=== PATIENT | female | born 1950 | race Hispanic/Latino ===

== ENCOUNTER 2022-02-28 12:25 | Emergency (ER) | payer MEDICARE ==
[2022-02-28] MEDS ORDERED: ACETAMINOPHEN 500 MG TAB PO ONE (15:57)
--- NOTE | 2022-02-28 15:57 | Emergency Department Report ---
ED Fall HPI - General Chief Complaint: Fall Stated Complaint: FALL/HEAD INJURY Source: patient Mode of arrival: Ambulatory - History of Present Illness Initial Comments: 71-year-old female presents to the ED after ground-level fall. Patient is complaining of a mild headache. She has some bruising noted to the supra part of her head. Patient states that while she was gardening she accidentally slipped while pulling pulling some garden roots. She states that she fell backwards and hit her head on some cement. She states that she has a history of diabetes, hypertension and sleep apnea. She states that she takes aspirin daily. States that pain is a current 5 out of 10. Patient states that she did not take any medication prior to arrival. She has an ice pack noted to the back of her head. Patient denies that pain is radiating. Patient denies any LOC, nausea or vomiting or blurred vision. Patient is ambulatory. No acute distress noted. No ill appearance noted. - Related Data Allergies Allergy/AdvReac Type Severity Reaction Status Date / Time No Known Allergies Allergy Unverified 02/28/22 13:44 ED Review of Systems ROS: Stated complaint: FALL/HEAD INJURY Other details as noted in HPI Constitutional: denies: chills, fever Eyes: denies: eye pain, eye discharge, vision change ENT: denies: ear pain, throat pain Respiratory: denies: cough, shortness of breath, wheezing Cardiovascular: denies: chest pain, palpitations Endocrine: no symptoms reported Gastrointestinal: denies: abdominal pain, nausea, diarrhea Genitourinary: denies: urgency, dysuria, discharge Musculoskeletal: denies: back pain, joint swelling, arthralgia Skin: denies: rash, lesions Neurological: headache. denies: weakness, paresthesias Psychiatric: denies: anxiety, depression Hematological/Lymphatic: denies: easy bleeding, easy bruising ED Past Medical Hx - Past Medical History Previous Medical History?: Yes Hx Diabetes: Yes Additional medical history: sleep apnea - Surgical History Past Surgical History?: Yes Additional Surgical History: Hysterectomy, Left foot x 2, Tonsillectomy ED Physical Exam - General Limitations: No Limitations General appearance: alert, in no apparent distress - Head Head exam: Present: atraumatic, normocephalic - Eye Eye exam: Present: normal appearance - ENT ENT exam: Present: mucous membranes moist - Neck Neck exam: Present: normal inspection - Respiratory Respiratory exam: Present: normal lung sounds bilaterally. Absent: respiratory distress - Cardiovascular Cardiovascular Exam: Present: regular rate, normal rhythm. Absent: systolic murmur, diastolic murmur, rubs, gallop - GI/Abdominal GI/Abdominal exam: Present: soft, normal bowel sounds - Extremities Exam Extremities exam: Present: normal inspection - Back Exam Back exam: Present: normal inspection - Neurological Exam Neurological exam: Present: alert, oriented X3 - Psychiatric Psychiatric exam: Present: normal affect, normal mood - Skin Skin exam: Present: warm, dry, intact, normal color. Absent: rash ED Course Vital Signs 02/28/22 02/28/22 02/28/22 13:37 15:07 16:51 Temperature 97.9 F 98.9 F Pulse Rate 77 71 Respiratory 20 14 Rate Blood Pressure 136/85 135/72 [Right] O2 Sat by Pulse 97 98 98 Oximetry ED Medical Decision Making - Radiology Data [facility] [address] [place] [address] Cat Scan Report Signed Patient: CARLOS CULVER MR#: [id number] : 1950 Acct:[id number] Age/Sex: 71 / F ADM Date: 02/28/22 Loc: ED Attending Dr: Ordering Physician: RAFI ARIAS Date of Service: 02/28/22 Procedure(s): CT head/brain wo con Accession Number(s): [id number] cc: RAFI ARIAS CT head/brain wo con INDICATION / CLINICAL INFORMATION: 71 years Female; fall. TECHNIQUE: Routine CT head without contrast. All CT scans at this location are performed using CT dose reduction for ALARA by means of automated exposure control. COMPARISON: None. FINDINGS: BRAIN / INTRACRANIAL CONTENTS: No acute hemorrhage, mass effect, midline shift, hydrocephalus, or acute, large territorial infarct. Mild, diffuse cerebral atrophy. There are minimal areas of decreased attenuation in the white matter of the cerebral hemispheres. These are nonspecific findings and may be related to microangiopathy (hypertension, diabetes, atherosclerosis), given the patient's age. CRANIOCERVICAL JUNCTION: No significant abnormality. ORBITS: No significant abnormality of visualized orbits. SINUSES / MASTOIDS: Mild mucosal thickening seen in the mastoids on the right. ADDITIONAL FINDINGS: Subcutaneous trauma seen in the left occipital region. No signs of underlying calvarial fracture noted. IMPRESSION: 1. No focal mass, intracranial hemorrhage, hydrocephalus, or acute, large territorial infarct. Signer Name: Siva Amos MD, III Signed: 02/28/2022 3:56 PM Workstation Name: [id number] Transcribed By: HR Dictated By: Siva Amos MD Electronically Authenticated By: Siva Amos MD Signed Date/Time: 02/28/221555 DD/ 53 TD/TT: Print Cancel - Medical Decision Making 71-year-old female presents to the ED after ground-level fall. Patient is complaining of a mild headache. She has some bruising noted to the supra part of her head. Patient states that while she was gardening she accidentally slip ped while pulling pulling some garden roots. She states that she fell backwards and hit her head on some cement. She states that she has a history of diabetes, hypertension and sleep apnea. She states that she takes aspirin daily. States that pain is a current 5 out of 10. Patient states that she did not take any medication prior to arrival. She has an ice pack noted to the back of her head. Patient denies that pain is radiating. Patient denies any LOC, nausea or vomiting or blurred vision. Patient is ambulatory. No acute distress noted. No ill appearance noted. Physical examination patient has abrasion noted to the cervical part of her head. She has abrasion noted to the bilateral extremity. No bleeding noted. CT of the head shows no abnormality Rechecked the patient is resting quietly quietly and comfortable and feeling better. I discussed the results of diagnostic study, my clinical impression and the plan for further treatment with the patient. Patient agrees with plan and discharge at this present time. All question addressed. I have given the patient instruction regarding a diagnosis ,expectation ,follow- up and return precaution. I explained to the patient that emergent condition may arise and to return to the ED for new worsen and any new persisting condition. I have explained the importance of following up with the primary care physician or referral physician listed below has instructed. The patient verbalized understanding of discharge instruction. Critical care attestation.: If time is entered above; I have spent that time in minutes in the direct care of this critically ill patient, excluding procedure time. ED Disposition Clinical Impression: Abrasion Fall Qualifiers: Encounter type: initial encounter Qualified Code(s): W19.XXXA - Unspecified fall, initial encounter Contusion Qualifiers: Encounter type: initial encounter Contusion area: head Disposition: HOME / SELF CARE / HOMELESS Is pt being admited?: No Does the pt Need Aspirin: No Condition: Stable Instructions: Head Injury, Adult, Skin Tear, Abrasion, [id number], Fall Prevention in the Home, Adult Additional Instructions: May take [id number] Tylenol for pain Return to ED for any worsening symptom Referrals: ADALGISA TILLMAN II, MD [Staff Physician] - 3-5 Days Time of Disposition: 16:29
--- NOTE | 2022-02-28 16:00 | Cat Scan Report ---
CT head/brain wo con INDICATION / CLINICAL INFORMATION: 71 years Female; fall. TECHNIQUE: Routine CT head without contrast. All CT scans at this location are performed using CT dos e reduction for ALARA by means of automated exposure control. COMPARISON: None. FINDINGS: BRAIN / INTRACRANIAL CONTENTS: No acute hemorrhage, mass effect, midline shift, hydrocephalus, or acu te, large territorial infarct. Mild, diffuse cerebral atrophy. There are minimal areas of decreased attenuation in the white matter of the cerebral hemispheres. The se are nonspecific findings and may be related to microangiopathy (hypertension, diabetes, atheroscle rosis), given the patient's age. CRANIOCERVICAL JUNCTION: No significant abnormality. ORBITS: No significant abnormality of visualized orbits. SINUSES / MASTOIDS: Mild mucosal thickening seen in the mastoids on the right. ADDITIONAL FINDINGS: Subcutaneous trauma seen in the left occipital region. No signs of underlying ca lvarial fracture noted. IMPRESSION: 1. No focal mass, intracranial hemorrhage, hydrocephalus, or acute, large territorial infarct. Signer Name: Siva Amos MD, III Signed: 02/28/2022 3:56 PM Workstation Name: [id number]
[2022-02-28 16:54] VITALS: BP 135/72
== END 2022-02-28 17:07 | disposition home or self-care (01) ==
LOC: ED 12:25
DX: S00.93XA Contusion of unspecified part of head, initial encounter (principal); E11.9 Type 2 diabetes mellitus without complications; W19.XXXA Unspecified fall, initial encounter; Y93.89 Activity, other specified; Y92.89 Other specified places as the place of occurrence of the external cause; Y99.8 Other external cause status
CPT/HCPCS: 70450; 99283